=== PATIENT | male | born 1960 | race Caucasian/White ===

== ENCOUNTER 2016-09-11 21:12 | Emergency (ER) | payer OTHER ==
[~2016-09-11] VITALS: Ht 182.9 cm; Wt 89.3 kg
[~2016-09-11 21:12] MED LIST: ACETAMINOPHEN325 M1 PO; AUGMENTIN875 MG PO; B-1100 MG PO; BACTRIM,SEPT1 TABLET PO; BENADRYL25 MG PO; CELEXA20 MG PO; CITALOPRAM HBR20 MG PO; DOXYCYCLINE HY100 MG PO; ELIMITE 5% CREA60 GM TP; FLEXERIL5 MG PO; FOLIC ACID1 MG PO; HYDROCORTISON28.4 GM TP; KEFLEX500 MG PO; LEVAQUIN750 MG PO; LIBRIUM25 MG PO; LISINOPRIL5 MG PO; LORTAB 5-325 M1 EACH PO; MEDROL DOSEPAK4 MG PO; METHOCARBAMOL750 MG PO; MOBIC15 MG PO; MOTRIN400 MG PO; MOTRIN600 MG PO; MOTRIN800 MG PO; NAPROSYN500 MG PO; NICOTINE PATCH1 EAC2 TD; NO HOME MEDS; NYSTATIN15 GM TP; PEPCID20 MG PO; PRILOSEC20 MG PO; ROBITUSSIN AC,T10 ML PO; THERAGRAN1 TABLET PO; THIAMINE HCL100 MG PO; TYLENOL WITH C1 EACH PO; ULTRAM50 MG PO; VITAMIN B-1100 MG PO; ZITHROMAX Z-PA250 MG PO; ZITHROMAX250 MG PO; ZOFRAN4 MG PO
[2016-09-11] MEDS ORDERED: PREDNISONE10 MG PO (23:06)
[2016-09-11] MEDS ORDERED: ELIMITE 5% CREA60 GM TP (23:06)
[2016-09-11 23:44] VITALS: BP 144/108
== END 2016-09-11 23:47 | disposition home or self-care (01) ==
LOC: RME 21:12 → EME 21:12 → RME 23:47
DX: B86 Scabies (principal); I10 Essential (primary) hypertension; B19.20 Unspecified viral hepatitis C without hepatic coma; F17.200 Nicotine dependence, unspecified, uncomplicated
CPT/HCPCS: 99281; 99284

== ENCOUNTER 2016-11-24 21:08 | Emergency (ER) | payer OTHER ==
[~2016-11-24] VITALS: Ht 182.9 cm; Wt 86.1 kg
[~2016-11-24 21:08] MED LIST changes: +PREDNISONE10 MG PO
[2016-11-24 21:23] VITALS: BP 112/69
[2016-11-24] MEDS ORDERED: MOTRIN800 MG PO (22:56)
== END 2016-11-24 23:41 | disposition home or self-care (01) ==
LOC: EME 21:08
DX: S06.0X0A Concussion without loss of consciousness, initial encounter (principal); S70.01XA Contusion of right hip, initial encounter; M25.531 Pain in right wrist; Y35.813A Legal intervention involving manhandling, suspect injured, initial encounter
CPT/HCPCS: 99281; 99283

== ENCOUNTER 2016-11-29 20:53 | Emergency (ER) | payer OTHER ==
[~2016-11-29] VITALS: Ht 180.3 cm; Wt 80.5 kg
[2016-11-29 21:06] VITALS: BP 133/91
== END 2016-11-29 22:34 | disposition left against medical advice (07) ==
LOC: EME 20:53
DX: F10.20 Alcohol dependence, uncomplicated (principal); Z53.21 Procedure and treatment not carried out due to patient leaving prior to being seen by health care provider
CPT/HCPCS: 99281; 99282

== ENCOUNTER 2016-12-07 20:49 | Inpatient (IN) | payer OTHER ==
[~2016-12-07] VITALS: Ht 182.9 cm; Wt 95.5 kg
[2016-12-07 21:42] LABS: HEMATOCRIT 37.2 % (38.0-50.0); MCH 29.9 PG (29.0-34.0); MCHC 34.9 G/DL (30.0-36.0); MCV 85.5 FL (86-99); RBC DIS.WIDTH-SD 43.8 % (39-53); RED BLOOD COUNT 4.35 M/uL (4.00-5.50); WHITE BLOOD COUNT 2.6 K/uL (4.1-10.2)
[2016-12-07 21:54] LABS: CHLORIDE 95 mEq/L (99-109); POTASSIUM 3.3 mEq/L (3.7-5.4); SODIUM 131 mEq/L (136-147)
[2016-12-07 21:56] LABS: GLUCOSE 71 mg/dL (70-99)
[2016-12-07 21:57] LABS: ANION GAP 22 MEQ/L (2-14)
[2016-12-07 22:00] LABS: GFR ESTIMATE (CALCULATED) 35 mL/min/
[2016-12-07 22:01] LABS: UREA NITROGEN (BUN) 35 mg/dL (9-23)
[2016-12-07 22:31] LABS: HEMATOLOGY COMMENT 1 SN; IMM.PLATELET FRACTION 11.4 (1-7); MEAN PLAT.VOLUME 12.1 uM^3 (9.0-12.4); PLATELET COUNT 44 K/uL (156-360)
[2016-12-07 22:32] LABS: PLAT.SUFFICIENCY VERY DECREASED
[2016-12-07 23:07] LABS: ALKALINE PHOSPHATASE 38 IU/L (3-129)
[2016-12-07 23:10] LABS: DIRECT BILIRUBIN 3.3 mg/dL (0.0-0.3); INTER. NORMALIZED RATIO 1.7; PROTHROMBIN TIME 17.2 (9.2-11.2); PTT 34.8 (25-32)
[2016-12-07 23:11] LABS: LIPASE 8 U/L (1.0-51.0)
[2016-12-07 23:15] LABS: TROP-I INTERPRETATION INDETERMINATE; TROPONIN-I 0.46 ng/mL (0.0-0.30)
[2016-12-07 23:45] LABS: BASE EXCESS -2.4 mEq/L (-3 to +3); BICARBONATE 19.8 mEq/L (22-26); CARBOXY HGB 1.8 % (0-5); COMMENTS - BLOOD GASES C+A+; DEVICE HHFNC; FI02 100 %; O2 FLOW 55 L/MIN; PCO2 26 mm Hg (35-45); PO2 62 mm Hg (80-100); SITE LR; pH 7.49 (7.35-7.45)
[2016-12-07 23:46] LABS: TOTAL RESP RATE 28 resp/min
[2016-12-08] VITALS (22 sets, daily range): BP systolic 108–174; BP diastolic 71–140
[2016-12-08 00:22] LABS: SERUM ETHYL ALCOHOL < 10 mg/dL
[2016-12-08 00:25] LABS: SALICYLATE < 5.0 MG/DL (15-30)
[2016-12-08 03:40] LABS: METH RESISTANT S AUREUS PCR NEGATIVE (NEGATIVE)
[2016-12-08 03:48] LABS: PROBE CHECK PASS; SPECIMEN PROCESSING CONTROL PASS
[2016-12-08 05:03] LABS: CHLORIDE 101 mEq/L (99-109); SODIUM 132 mEq/L (136-147)
[2016-12-08 05:05] LABS: GLUCOSE 74 mg/dL (70-99)
[2016-12-08 05:06] LABS: ANION GAP 15 MEQ/L (2-14)
[2016-12-08 05:08] LABS: ALKALINE PHOSPHATASE 27 IU/L (3-129)
[2016-12-08 05:09] LABS: GFR ESTIMATE (CALCULATED) 56 mL/min/; TOTAL BILIRUBIN 3.8 mg/dL (0.0-1.0)
[2016-12-08 05:10] LABS: UREA NITROGEN (BUN) 33 mg/dL (9-23)
[2016-12-08 06:18] LABS: HEMATOCRIT 32.1 % (38.0-50.0); IMM.PLATELET FRACTION 10.6 (1-7); MCH 30.5 PG (29.0-34.0); MCHC 35.5 G/DL (30.0-36.0); MCV 85.8 FL (86-99); MEAN PLAT.VOLUME 11.2 uM^3 (9.0-12.4); PLAT.SUFFICIENCY VERY DECREASED; RBC DIS.WIDTH-CV 14.1 % (11.8-14.6); RBC DIS.WIDTH-SD 43.9 % (39-53); RED BLOOD COUNT 3.74 M/uL (4.00-5.50); WHITE BLOOD COUNT 1.1 K/uL (4.1-10.2)
[2016-12-08 06:21] LABS: PLATELET COUNT 25 K/uL (156-360)
[2016-12-08 06:57] LABS: TROP-I INTERPRETATION INDETERMINATE; TROPONIN-I 0.44 ng/mL (0.0-0.30)
[2016-12-08 08:11] LABS: Estimated Average Glucose 117 mg/dL (70-123); HEMOGLOBIN A1c (GLYCOHEMOGLOB) 5.7 % HGB (Below 5.7)
[2016-12-08 11:29] LABS: POINT-OF-CARE METER ID UU14162636
[2016-12-08 14:57] LABS: TROP-I INTERPRETATION NEGATIVE; TROPONIN-I 0.16 ng/mL (0.0-0.30)
[2016-12-08 16:16] LABS: POINT-OF-CARE METER ID UU14162636
[2016-12-09] VITALS (23 sets, daily range): BP systolic 73–162; BP diastolic 44–99
[2016-12-09 05:56] LABS: HEMATOCRIT 33.7 % (38.0-50.0); MCH 30.3 PG (29.0-34.0); MCHC 34.7 G/DL (30.0-36.0); MCV 87.3 FL (86-99); RBC DIS.WIDTH-CV 14.5 % (11.8-14.6); RBC DIS.WIDTH-SD 45.7 % (39-53); RED BLOOD COUNT 3.86 M/uL (4.00-5.50)
[2016-12-09 05:57] LABS: WHITE BLOOD COUNT 5.6 K/uL (4.1-10.2)
[2016-12-09 06:10] LABS: ALKALINE PHOSPHATASE 33 IU/L (3-129); ANION GAP 10 MEQ/L (2-14); CHLORIDE 98 MEQ/L (99-109); MAGNESIUM 2.1 mg/dl (1.3-2.7); POTASSIUM 3.1 MEQ/L (3.7-5.4); SAMPLE HEMOLYSIS CHECK 0; SAMPLE ICTERIC CHECK 0; SAMPLE LIPEMIA CHECK 0; SODIUM 130 MEQ/L (136-147); TOTAL BILIRUBIN 2.7 MG/DL (0.0-1.0); UREA NITROGEN (BUN) 23 mg/dL (9-23)
[2016-12-09 06:11] LABS: GFR ESTIMATE (CALCULATED) > 59 mL/min/; GLUCOSE 116 mg/dL (70-99)
[2016-12-09 06:23] LABS: IMM.PLATELET FRACTION 10.6 (1-7); MEAN PLAT.VOLUME 12.6 uM^3 (9.0-12.4)
[2016-12-09 06:24] LABS: PLATELET COUNT 29 K/uL (156-360)
[2016-12-09 06:27] LABS: INTER. NORMALIZED RATIO 1.4; PROTHROMBIN TIME 14.5 (9.2-11.2)
[2016-12-09 07:34] LABS: BASE EXCESS 0.1 mEq/L (-3 to +3); BICARBONATE 23.6 mEq/L (22-26); CARBOXY HGB 1.9 % (0-5); METHEMOGLOBIN 1.7 % (0-1.5); pH 7.45 (7.35-7.45)
[2016-12-09 07:35] LABS: COMMENTS - BLOOD GASES A+C+; DEVICE HHFNC; O2 FLOW 70 L/MIN; PCO2 34 mm Hg (35-45); PO2 36 mm Hg (80-100); SITE RRA
[2016-12-09 07:36] LABS: FI02 100 %; TOTAL RESP RATE 35 resp/min
[2016-12-09 09:18] LABS: BASE EXCESS 0 mEq/L (-3 to +3); BICARBONATE 23.8 mEq/L (22-26); METHEMOGLOBIN 1.5 % (0-1.5); PCO2 35 mm Hg (35-45); PO2 73 mm Hg (80-100); pH 7.44 (7.35-7.45)
[2016-12-09 09:19] LABS: COMMENTS - BLOOD GASES A+C+; DEVICE 840; FI02 100 %; PEEP 8 CM/H20; SITE RRA; TOTAL RESP RATE 50 resp/min
[2016-12-09 12:19] LABS: POINT-OF-CARE METER ID UU14162636
[2016-12-09 16:53] LABS: POINT-OF-CARE METER ID UU14162636
[2016-12-09 18:39] LABS: POINT-OF-CARE METER ID UU14162636
[2016-12-09 20:50] LABS: BASE EXCESS -1.4 mEq/L (-3 to +3); BICARBONATE 25.6 mEq/L (22-26); CARBOXY HGB 1.9 % (0-5); METHEMOGLOBIN 1.2 % (0-1.5); PO2 84 mm Hg (80-100)
[2016-12-09 20:51] LABS: PCO2 52 mm Hg (35-45)
[2016-12-09 20:52] LABS: COMMENTS - BLOOD GASES A+C+; DEVICE VENT; FI02 100 %; MECHANICAL RATE 20 resp/min; MODE A/C; PEEP 15 CM/H20; SITE RR; TIDAL VOLUME 500 ML; TOTAL RESP RATE 35 resp/min
[2016-12-09 23:50] LABS: POINT-OF-CARE METER ID UU14162636; POINT-OF-CARE USER ID LABHNS84
[2016-12-09 23:57] LABS: CHLORIDE 104 mEq/L (99-109); POTASSIUM 3.4 mEq/L (3.7-5.4); SODIUM 136 mEq/L (136-147)
[2016-12-09 23:59] LABS: GLUCOSE 117 mg/dL (70-99)
[2016-12-10] VITALS (24 sets, daily range): BP systolic 0–108; BP diastolic 0–71
[2016-12-10] LABS: ANION GAP 11 MEQ/L (2-14)
[2016-12-10 00:03] LABS: ALKALINE PHOSPHATASE 42 IU/L (3-129); GFR ESTIMATE (CALCULATED) > 59 mL/min/
[2016-12-10 00:04] LABS: MCH 30.5 PG (29.0-34.0); MCHC 34.2 G/DL (30.0-36.0); MCV 88.9 FL (86-99); NRBC (%) 0.2 /100 WBC (0-0); RBC DIS.WIDTH-CV 14.6 % (11.8-14.6); RBC DIS.WIDTH-SD 47.7 % (39-53); RED BLOOD COUNT 3.71 M/uL (4.00-5.50); UREA NITROGEN (BUN) 34 mg/dL (9-23)
[2016-12-10 00:05] LABS: TOTAL BILIRUBIN 2.5 mg/dL (0.0-1.0)
[2016-12-10 00:06] LABS: WHITE BLOOD COUNT 12.7 K/uL (4.1-10.2)
[2016-12-10 00:51] LABS: IMM.PLATELET FRACTION 11.7 (1-7); PLATELET COUNT 37 K/uL (156-360)
[2016-12-10 00:53] LABS: PLAT.SUFFICIENCY VERY DECREASED
[2016-12-10 05:30] LABS: ALKALINE PHOSPHATASE 42 IU/L (3-129); ANION GAP 8 MEQ/L (2-14); CHLORIDE 105 MEQ/L (99-109); GFR ESTIMATE (CALCULATED) > 59 mL/min/; GLUCOSE 111 mg/dL (70-99); MAGNESIUM 2.3 mg/dl (1.3-2.7); POTASSIUM 3.4 MEQ/L (3.7-5.4); SAMPLE HEMOLYSIS CHECK 0; SAMPLE ICTERIC CHECK 0; SAMPLE LIPEMIA CHECK 0; SODIUM 137 MEQ/L (136-147); TOTAL BILIRUBIN 2.6 MG/DL (0.0-1.0); UREA NITROGEN (BUN) 38 mg/dL (9-23)
[2016-12-10 05:36] LABS: HEMATOCRIT 33.6 % (38.0-50.0); MCH 30.4 PG (29.0-34.0); MCHC 33.3 G/DL (30.0-36.0); MCV 91.1 FL (86-99); NRBC (%) 0.2 /100 WBC (0-0); RBC DIS.WIDTH-CV 15.1 % (11.8-14.6); RBC DIS.WIDTH-SD 50.8 % (39-53); RED BLOOD COUNT 3.69 M/uL (4.00-5.50); WHITE BLOOD COUNT 12.2 K/uL (4.1-10.2)
[2016-12-10 06:37] LABS: MEAN PLAT.VOLUME 11.5 uM^3 (9.0-12.4); PLAT.SUFFICIENCY DECREASED; PLATELET COUNT 33 K/uL (156-360)
[2016-12-10 12:03] LABS: POINT-OF-CARE METER ID UU14162636
[2016-12-11] VITALS (31 sets, daily range): BP systolic 73–114; BP diastolic 41–65
[2016-12-11 00:37] LABS: POINT-OF-CARE USER ID LABHNS84
[2016-12-11 05:32] LABS: POINT-OF-CARE METER ID UU14174217; POINT-OF-CARE USER ID LABHNS84
[2016-12-11 06:30] LABS: HEMATOCRIT 32.4 % (38.0-50.0); MCH 30.8 PG (29.0-34.0); MCHC 32.4 G/DL (30.0-36.0); RBC DIS.WIDTH-CV 16.1 % (11.8-14.6); RBC DIS.WIDTH-SD 56.5 % (39-53); RED BLOOD COUNT 3.41 M/uL (4.00-5.50)
[2016-12-11 06:31] LABS: WHITE BLOOD COUNT 16.7 K/uL (4.1-10.2)
[2016-12-11 06:36] LABS: ANION GAP 11 MEQ/L (2-14); CHLORIDE 104 MEQ/L (99-109); GLUCOSE 120 mg/dL (70-99); POTASSIUM 3.7 MEQ/L (3.7-5.4); SAMPLE HEMOLYSIS CHECK 0; SAMPLE ICTERIC CHECK 1; SAMPLE LIPEMIA CHECK 0; SODIUM 137 MEQ/L (136-147)
[2016-12-11 06:49] LABS: GFR ESTIMATE (CALCULATED) 37 mL/min/; MAGNESIUM 2.9 mg/dl (1.3-2.7); UREA NITROGEN (BUN) 63 mg/dL (9-23)
[2016-12-11 06:57] LABS: ABS NEUTROPHIL COUNT 15.2; ANISOCYTOSIS 1+; BAND NEUTROPHILS 6.1 % (0-8.0); BASOPHILS 0.9 %; EOSINOPHIL ABS CT 0; HEMATOLOGY COMMENT 1 SN; IMM.PLATELET FRACTION 7.9 (1-7); INSTRUMENT ABS NEUTROPHIL CT 14.2 K/uL; LYMPHOCYTES 1.7 % (15.0-45.0); MACROCYTES 1+; MEAN PLAT.VOLUME 11.3 uM^3 (9.0-12.4); PLAT.SUFFICIENCY DECREASED; PLATELET COUNT 40 K/uL (156-360); POLYCHROMASIA 1+; SEG.NEUTROPHILS 85.2 % (46.0-76.0)
[2016-12-11 12:12] LABS: POINT-OF-CARE METER ID UU14174217
[2016-12-11 14:53] LABS: Heparin Induced Plt Ab Positive (Negative)
[2016-12-11 17:46] LABS: ADD MIUA? YES; BILIRUBIN NEGATIVE; BLOOD MODERATE; COLOR AMBER ((YELLOW)); GLUCOSE (STRIP) NEGATIVE; KETONES NEGATIVE; LEUKOCYTES NEGATIVE; NITRITE NEGATIVE; PROTEIN (STRIP) NEGATIVE; SPECIFIC GRAVITY 1.021 (1.000-1.030); UROBILINOGEN 0.2 MG/DL (0.2-1.0)
[2016-12-11 18:08] LABS: BACTERIA RARE /HPF; EPITHELIAL CELLS NONE SEEN /HPF; MUCUS TRACE /LPF; RED BLOOD CELLS 20-30 /HPF (0-5); WHITE BLOOD CELLS 0-5 /HPF (0-5)
[2016-12-11 19:52] LABS: UR CREATININE CONCENTRATION 203.4 MG/DL
[2016-12-11 21:32] LABS: POINT-OF-CARE METER ID UU14174217
[2016-12-12] VITALS (24 sets, daily range): BP systolic 0–123; BP diastolic 0–68
[2016-12-12 00:16] LABS: POINT-OF-CARE METER ID UU14174217; POINT-OF-CARE USER ID LABHNS84
[2016-12-12 05:12] LABS: POINT-OF-CARE METER ID UU13113803; POINT-OF-CARE USER ID LABHNS84
[2016-12-12 06:00] LABS: ANION GAP 12 MEQ/L (2-14); CHLORIDE 109 MEQ/L (99-109); GFR ESTIMATE (CALCULATED) 42 mL/min/; GLUCOSE 136 mg/dL (70-99); MAGNESIUM 3.2 mg/dl (1.3-2.7); SAMPLE HEMOLYSIS CHECK 0; SAMPLE ICTERIC CHECK 1; SAMPLE LIPEMIA CHECK 0; SODIUM 141 MEQ/L (136-147); UREA NITROGEN (BUN) 81 mg/dL (9-23)
[2016-12-12 06:10] LABS: ANION GAP 12 MEQ/L (2-14); CHLORIDE 109 MEQ/L (99-109); GFR ESTIMATE (CALCULATED) 39 mL/min/; GLUCOSE 143 mg/dL (70-99); MAGNESIUM 3.2 mg/dl (1.3-2.7); POTASSIUM 3.9 MEQ/L (3.7-5.4); SAMPLE HEMOLYSIS CHECK 0; SAMPLE ICTERIC CHECK 1; SAMPLE LIPEMIA CHECK 0; SODIUM 141 MEQ/L (136-147); UREA NITROGEN (BUN) 82 mg/dL (9-23); URIC ACID 4.6 mg/dL (3.1-9.2)
[2016-12-12 06:11] LABS: ALKALINE PHOSPHATASE 78 IU/L (3-129); TOTAL BILIRUBIN 4.5 MG/DL (0.0-1.0)
[2016-12-12 13:05] LABS: POINT-OF-CARE METER ID UU13113803
[2016-12-12 17:40] LABS: UFH SRA Result Negative (Negative)
[2016-12-12 18:14] LABS: POINT-OF-CARE METER ID UU13113803
[2016-12-13 01:08] LABS: POINT-OF-CARE METER ID UU14174217
[2016-12-13 06:28] LABS: MCH 29.8 PG (29.0-34.0); MCHC 31.1 G/DL (30.0-36.0); MCV 95.6 FL (86-99); MEAN PLAT.VOLUME 10.7 uM^3 (9.0-12.4); NRBC (%) 0.1 /100 WBC (0-0); RBC DIS.WIDTH-CV 16.7 % (11.8-14.6); RBC DIS.WIDTH-SD 58.7 % (39-53); RED BLOOD COUNT 3.66 M/uL (4.00-5.50); WHITE BLOOD COUNT 19.4 K/uL (4.1-10.2)
[2016-12-13 06:41] LABS: PLATELET COUNT 60 K/uL (156-360)
[2016-12-13 07:06] LABS: ALKALINE PHOSPHATASE 72 IU/L (3-129); ANION GAP 10 MEQ/L (2-14); CHLORIDE 117 MEQ/L (99-109); GFR ESTIMATE (CALCULATED) 56 mL/min/; GLUCOSE 141 mg/dL (70-99); POTASSIUM 4.2 MEQ/L (3.7-5.4); SAMPLE HEMOLYSIS CHECK 0; SAMPLE ICTERIC CHECK 1; SAMPLE LIPEMIA CHECK 0; TOTAL BILIRUBIN 5.1 MG/DL (0.0-1.0); UREA NITROGEN (BUN) 74 mg/dL (9-23)
[2016-12-13 07:10] LABS: SODIUM 149 MEQ/L (136-147)
[2016-12-13 07:12] LABS: BASOPHIL COUNT 0.1 K/uL (0-0.1); EOSINOPHIL (%) 0.7 % (0-5); EOSINOPHIL COUNT 0.1 K/uL (0-0.3); IMMATURE GRANULOCYTE (%) 1.6 % (0.0-0.7); IMMATURE GRANULOCYTE COUNT 0.3 K/uL; INSTRUMENT ABS NEUTROPHIL CT 17.1 K/uL; LYMPHOCYTE COUNT 1.2 K/uL (1.0-2.8); MONOCYTE (%) 2.9 % (3-12); MONOCYTE COUNT 0.6 K/uL (0-0.8); NEUTROPHIL (%) 88.2 % (45-76); NEUTROPHIL COUNT 17.1 K/uL (1.8-6.4); PLAT.SUFFICIENCY DECREASED
[2016-12-13 09:00] VITALS: BP 126/72
[2016-12-13 11:34] LABS: POINT-OF-CARE METER ID UU14162636
[2016-12-13 13:45] LABS: Heparin Induced Plt Ab Positive (Negative)
[2016-12-13 16:05] LABS: UFH SRA Result Negative (Negative)
[2016-12-13 18:12] LABS: POINT-OF-CARE METER ID UU13113803
[2016-12-13 23:22] LABS: BASE EXCESS -1.4 mEq/L (-3 to +3); BICARBONATE 26.2 mEq/L (22-26); CARBOXY HGB 2.2 % (0-5); METHEMOGLOBIN 1.3 % (0-1.5); PO2 71 mm Hg (80-100)
[2016-12-13 23:23] LABS: COMMENTS - BLOOD GASES C+; DEVICE 840; FI02 60 %; INSPIRATION TIME 0.9 seconds; MECHANICAL RATE 20 resp/min; MODE AC/VC+; PCO2 57 mm Hg (35-45); PEEP 14 CM/H20; SITE A-LINE; TIDAL VOLUME 500 ML; TOTAL RESP RATE 22 resp/min
[2016-12-13 23:24] LABS: pH 7.27 (7.35-7.45)
[2016-12-14 00:43] LABS: POINT-OF-CARE METER ID UU13113731
[2016-12-14 05:25] LABS: POINT-OF-CARE METER ID UU13113731
[2016-12-14 05:42] LABS: BASE EXCESS -0.8 mEq/L (-3 to +3); BICARBONATE 26.1 mEq/L (22-26); CARBOXY HGB 2.1 % (0-5); METHEMOGLOBIN 1.7 % (0-1.5); PCO2 53 mm Hg (35-45); PO2 76 mm Hg (80-100)
[2016-12-14 05:43] LABS: COMMENTS - BLOOD GASES C+; DEVICE 840; FI02 60 %; INSPIRATION TIME 0.8 seconds; MECHANICAL RATE 26 resp/min; MODE AC/VC+; PEEP 14 CM/H20; SITE A-LINE; TIDAL VOLUME 500 ML; TOTAL RESP RATE 29 resp/min
[2016-12-14 06:12] LABS: ALKALINE PHOSPHATASE 73 IU/L (3-129); ANION GAP 7 MEQ/L (2-14); CHLORIDE 120 MEQ/L (99-109); GFR ESTIMATE (CALCULATED) > 59 mL/min/; GLUCOSE 184 mg/dL (70-99); MAGNESIUM 3.1 mg/dl (1.3-2.7); POTASSIUM 3.8 MEQ/L (3.7-5.4); SAMPLE HEMOLYSIS CHECK 0; SAMPLE ICTERIC CHECK 1; SAMPLE LIPEMIA CHECK 0; SODIUM 151 MEQ/L (136-147); UREA NITROGEN (BUN) 65 mg/dL (9-23)
[2016-12-14 06:13] LABS: TOTAL BILIRUBIN 3.3 MG/DL (0.0-1.0)
[2016-12-14 06:37] LABS: EOSINOPHIL (%) 0.5 % (0-5); EOSINOPHIL COUNT 0.1 K/uL (0-0.3); IMMATURE GRANULOCYTE (%) 1.1 % (0.0-0.7); IMMATURE GRANULOCYTE COUNT 0.2 K/uL; INSTRUMENT ABS NEUTROPHIL CT 13.4 K/uL; LYMPHOCYTE COUNT 0.6 K/uL (1.0-2.8); MCH 30.1 PG (29.0-34.0); MCHC 30.9 G/DL (30.0-36.0); MCV 97.3 FL (86-99); MONOCYTE (%) 2.7 % (3-12); MONOCYTE COUNT 0.4 K/uL (0-0.8); NEUTROPHIL (%) 91.6 % (45-76); NEUTROPHIL COUNT 13.4 K/uL (1.8-6.4); RBC DIS.WIDTH-CV 17.2 % (11.8-14.6); RBC DIS.WIDTH-SD 60.5 % (39-53); RED BLOOD COUNT 3.29 M/uL (4.00-5.50); WHITE BLOOD COUNT 14.6 K/uL (4.1-10.2)
[2016-12-14 06:55] LABS: IMM.PLATELET FRACTION 3.8 (1-7); MEAN PLAT.VOLUME 11.3 uM^3 (9.0-12.4); PLATELET COUNT 40 K/uL (156-360)
[2016-12-14 11:00] VITALS: BP 118/68
[2016-12-14 18:21] LABS: POINT-OF-CARE METER ID UU13113731
[2016-12-14 23:37] LABS: POINT-OF-CARE METER ID UU13113731
[2016-12-15 06:33] LABS: POINT-OF-CARE METER ID UU13113731
[2016-12-15 06:52] LABS: ANION GAP 5 MEQ/L (2-14); CHLORIDE 118 MEQ/L (99-109); GFR ESTIMATE (CALCULATED) > 59 mL/min/; GLUCOSE 190 mg/dL (70-99); SAMPLE HEMOLYSIS CHECK 0; SAMPLE ICTERIC CHECK 0; SAMPLE LIPEMIA CHECK 0; SODIUM 149 MEQ/L (136-147); UREA NITROGEN (BUN) 45 mg/dL (9-23)
[2016-12-15 12:16] LABS: BASOPHIL COUNT 0.1 K/uL (0-0.1); EOSINOPHIL (%) 1.1 % (0-5); EOSINOPHIL COUNT 0.2 K/uL (0-0.3); HEMATOCRIT 36.2 % (38.0-50.0); IMMATURE GRANULOCYTE (%) 0.8 % (0.0-0.7); IMMATURE GRANULOCYTE COUNT 0.2 K/uL; INSTRUMENT ABS NEUTROPHIL CT 16.8 K/uL; LYMPHOCYTE COUNT 0.6 K/uL (1.0-2.8); MCHC 30.1 G/DL (30.0-36.0); MCV 99.7 FL (86-99); MONOCYTE (%) 2.7 % (3-12); MONOCYTE COUNT 0.5 K/uL (0-0.8); NEUTROPHIL (%) 91.7 % (45-76); NEUTROPHIL COUNT 16.8 K/uL (1.8-6.4); RBC DIS.WIDTH-SD 64.3 % (39-53); RED BLOOD COUNT 3.63 M/uL (4.00-5.50); WHITE BLOOD COUNT 18.3 K/uL (4.1-10.2)
[2016-12-15 12:52] LABS: IMM.PLATELET FRACTION 5.6 (1-7); MEAN PLAT.VOLUME 11.6 uM^3 (9.0-12.4); PLAT.SUFFICIENCY DECREASED; PLATELET COUNT 44 K/uL (156-360)
[2016-12-15 13:16] LABS: POINT-OF-CARE METER ID UU13113731
[2016-12-15 18:00] LABS: POINT-OF-CARE METER ID UU14162636
[2016-12-15 22:00] VITALS: BP 154/85
[2016-12-16] VITALS (7 sets, daily range): BP systolic 135–167; BP diastolic 71–97
[2016-12-16 00:37] LABS: POINT-OF-CARE METER ID UU14162636
[2016-12-16 05:19] LABS: POINT-OF-CARE METER ID UU13113731
[2016-12-16 06:13] LABS: ANION GAP 5 MEQ/L (2-14); CHLORIDE 119 MEQ/L (99-109); GFR ESTIMATE (CALCULATED) > 59 mL/min/; GLUCOSE 223 mg/dL (70-99); POTASSIUM 4.5 MEQ/L (3.7-5.4); SAMPLE HEMOLYSIS CHECK 0; SAMPLE ICTERIC CHECK 0; SAMPLE LIPEMIA CHECK 0; SODIUM 151 MEQ/L (136-147); UREA NITROGEN (BUN) 32 mg/dL (9-23)
[2016-12-16 06:14] LABS: MAGNESIUM 2.4 mg/dl (1.3-2.7)
[2016-12-16 12:05] LABS: POINT-OF-CARE METER ID UU13113803
[2016-12-16 17:30] LABS: POINT-OF-CARE METER ID UU13113803
[2016-12-16 21:32] LABS: BASE EXCESS 3.2 mEq/L (-3 to +3); BICARBONATE 28.5 mEq/L (22-26); CARBOXY HGB 2.3 % (0-5); FI02 60 %; MECHANICAL RATE 26 resp/min; METHEMOGLOBIN 1.4 % (0-1.5); MODE AC; PCO2 46 mm Hg (35-45); PEEP 10 CM/H20; PO2 64 mm Hg (80-100); TIDAL VOLUME 550 ML; TOTAL RESP RATE 28 resp/min
[2016-12-16 21:33] LABS: COMMENTS - BLOOD GASES C+; DEVICE PB840; SITE A-LINE
[2016-12-16 21:33] LABS: EOSINOPHIL COUNT 0.1 K/uL (0-0.3); HEMATOCRIT 32.2 % (38.0-50.0); IMMATURE GRANULOCYTE (%) 0.8 % (0.0-0.7); IMMATURE GRANULOCYTE COUNT 0.1 K/uL; INSTRUMENT ABS NEUTROPHIL CT 13.3 K/uL; LYMPHOCYTE COUNT 0.7 K/uL (1.0-2.8); MCH 29.8 PG (29.0-34.0); MCHC 30.4 G/DL (30.0-36.0); MCV 97.9 FL (86-99); MONOCYTE (%) 2.9 % (3-12); MONOCYTE COUNT 0.4 K/uL (0-0.8); NEUTROPHIL (%) 90.6 % (45-76); NEUTROPHIL COUNT 13.3 K/uL (1.8-6.4); RBC DIS.WIDTH-CV 18.4 % (11.8-14.6); RBC DIS.WIDTH-SD 61.8 % (39-53); RED BLOOD COUNT 3.29 M/uL (4.00-5.50); WHITE BLOOD COUNT 14.6 K/uL (4.1-10.2)
[2016-12-16 21:41] LABS: C DIFF TOXIN NEGATIVE (NEGATIVE)
[2016-12-16 21:44] LABS: INTER. NORMALIZED RATIO 1.7; PROTHROMBIN TIME 17.2 (9.2-11.2); PTT 33.5 (25-32)
[2016-12-16 21:52] LABS: PROBE CHECK PASS; SPECIMEN PROCESSING CONTROL PASS
[2016-12-16 21:54] LABS: ALKALINE PHOSPHATASE 101 IU/L (3-129); DIRECT BILIRUBIN 1.3 mg/dL (0.0-0.3); MAGNESIUM 2.6 mg/dl (1.3-2.7); TOTAL BILIRUBIN 2.3 MG/DL (0.0-1.0)
[2016-12-16 21:55] LABS: ALKALINE PHOSPHATASE 100 IU/L (3-129); ANION GAP 5 MEQ/L (2-14); CHLORIDE 120 MEQ/L (99-109); GFR ESTIMATE (CALCULATED) > 59 mL/min/; GLUCOSE 203 mg/dL (70-99); POTASSIUM 4.2 MEQ/L (3.7-5.4); SAMPLE HEMOLYSIS CHECK 0; SAMPLE ICTERIC CHECK 0; SAMPLE LIPEMIA CHECK 0; SODIUM 153 MEQ/L (136-147); TOTAL BILIRUBIN 2.4 MG/DL (0.0-1.0); UREA NITROGEN (BUN) 29 mg/dL (9-23)
[2016-12-16 22:15] LABS: ANISOCYTOSIS 2+; BAND NEUTROPHILS 17.5 % (0-8.0); BASOPHILS 0.9 %; EOSINOPHIL ABS CT 0; GIANT PLATELETS 1+; HYPOCHROMASIA 2+; IMM.PLATELET FRACTION 5.6 (1-7); LYMPHOCYTES 2.6 % (15.0-45.0); MACROCYTES 2+; MEAN PLAT.VOLUME 11.9 uM^3 (9.0-12.4); MICROCYTOSIS 1+; PLATELET COUNT 37 K/uL (156-360); POLYCHROMASIA 1+; SEG.NEUTROPHILS 78.1 % (46.0-76.0); SPHEROCYTES 1+; STOMATOCYTES 1+; TARGET CELLS 1+
[2016-12-16 22:25] LABS: PLAT.SUFFICIENCY VERY DECREASED
[2016-12-16 23:26] LABS: POINT-OF-CARE METER ID UU13113731
[2016-12-17] VITALS (30 sets, daily range): BP systolic 119–198; BP diastolic 67–98
[2016-12-17 00:25] LABS: FIBRINOGEN 159 MG/DL (160-450)
[2016-12-17 06:14] LABS: ANION GAP 8 MEQ/L (2-14); CHLORIDE 118 MEQ/L (99-109); GFR ESTIMATE (CALCULATED) > 59 mL/min/; GLUCOSE 167 mg/dL (70-99); MAGNESIUM 2.4 mg/dl (1.3-2.7); SAMPLE HEMOLYSIS CHECK 0; SAMPLE ICTERIC CHECK 0; SAMPLE LIPEMIA CHECK 0; SODIUM 155 MEQ/L (136-147); UREA NITROGEN (BUN) 26 mg/dL (9-23)
[2016-12-17 09:34] LABS: EOSINOPHIL COUNT 0.1 K/uL (0-0.3); IMMATURE GRANULOCYTE (%) 0.6 % (0.0-0.7); IMMATURE GRANULOCYTE COUNT 0.1 K/uL; INSTRUMENT ABS NEUTROPHIL CT 11.3 K/uL; LYMPHOCYTE COUNT 0.6 K/uL (1.0-2.8); MCHC 30.7 G/DL (30.0-36.0); MCV 97.6 FL (86-99); MONOCYTE COUNT 0.4 K/uL (0-0.8); NEUTROPHIL COUNT 11.3 K/uL (1.8-6.4); RBC DIS.WIDTH-CV 18.2 % (11.8-14.6); RBC DIS.WIDTH-SD 60.5 % (39-53); RED BLOOD COUNT 2.97 M/uL (4.00-5.50); WHITE BLOOD COUNT 12.6 K/uL (4.1-10.2)
[2016-12-17 10:02] LABS: IMM.PLATELET FRACTION 4.2 (1-7); MEAN PLAT.VOLUME 10.8 uM^3 (9.0-12.4); PLAT.SUFFICIENCY DECREASED
[2016-12-17 10:10] LABS: PLATELET COUNT 49 K/uL (156-360)
[2016-12-17 17:42] LABS: POINT-OF-CARE METER ID UU14162636
[2016-12-18] VITALS (24 sets, daily range): BP systolic 104–141; BP diastolic 60–84
[2016-12-18 00:53] LABS: POINT-OF-CARE METER ID UU13113803; POINT-OF-CARE USER ID ENVSME70
[2016-12-18 06:10] LABS: POINT-OF-CARE METER ID UU13113803; POINT-OF-CARE USER ID LABHNS84
[2016-12-18 06:15] LABS: BASOPHIL COUNT 0.1 K/uL (0-0.1); EOSINOPHIL (%) 0.9 % (0-5); EOSINOPHIL COUNT 0.1 K/uL (0-0.3); IMMATURE GRANULOCYTE (%) 0.7 % (0.0-0.7); IMMATURE GRANULOCYTE COUNT 0.1 K/uL; INSTRUMENT ABS NEUTROPHIL CT 14.4 K/uL; LYMPHOCYTE COUNT 1.1 K/uL (1.0-2.8); MCH 30.3 PG (29.0-34.0); MCV 97.6 FL (86-99); MEAN PLAT.VOLUME 11.7 uM^3 (9.0-12.4); MONOCYTE (%) 2.9 % (3-12); MONOCYTE COUNT 0.5 K/uL (0-0.8); NEUTROPHIL (%) 88.2 % (45-76); NEUTROPHIL COUNT 14.4 K/uL (1.8-6.4); RBC DIS.WIDTH-CV 18.5 % (11.8-14.6); RBC DIS.WIDTH-SD 60.2 % (39-53); RED BLOOD COUNT 2.97 M/uL (4.00-5.50); WHITE BLOOD COUNT 16.3 K/uL (4.1-10.2)
[2016-12-18 06:22] LABS: PLATELET COUNT 68 K/uL (156-360)
[2016-12-18 06:29] LABS: ANION GAP 6 MEQ/L (2-14); CHLORIDE 118 MEQ/L (99-109); GFR ESTIMATE (CALCULATED) > 59 mL/min/; GLUCOSE 171 mg/dL (70-99); MAGNESIUM 2.3 mg/dl (1.3-2.7); POTASSIUM 3.7 MEQ/L (3.7-5.4); SAMPLE HEMOLYSIS CHECK 0; SAMPLE ICTERIC CHECK 0; SAMPLE LIPEMIA CHECK 0; SODIUM 154 MEQ/L (136-147); UREA NITROGEN (BUN) 25 mg/dL (9-23)
[2016-12-18 12:45] LABS: POINT-OF-CARE METER ID UU13113803; POINT-OF-CARE USER ID 612031313
[2016-12-18 18:21] LABS: POINT-OF-CARE METER ID UU13113803; POINT-OF-CARE USER ID 612031313
[2016-12-19] VITALS (22 sets, daily range): BP systolic 0–136; BP diastolic 0–85
[2016-12-19 00:13] LABS: POINT-OF-CARE USER ID LABHNS84
[2016-12-19 05:14] LABS: BASE EXCESS 8.5 mEq/L (-3 to +3); BICARBONATE 31.6 mEq/L (22-26); CARBOXY HGB 2.3 % (0-5); METHEMOGLOBIN 1.7 % (0-1.5)
[2016-12-19 05:15] LABS: DEVICE PB840; FI02 40 %; MECHANICAL RATE 26 resp/min; MODE ACVC; PCO2 37 mm Hg (35-45); PEEP 10 CM/H20; PO2 91 mm Hg (80-100); TIDAL VOLUME 550 ML; TOTAL RESP RATE 26 resp/min; pH 7.54 (7.35-7.45)
[2016-12-19 05:16] LABS: COMMENTS - BLOOD GASES C+; SITE A-LINE
[2016-12-19 05:30] LABS: POINT-OF-CARE USER ID LABHNS84
[2016-12-19 06:20] LABS: BASOPHIL COUNT 0.1 K/uL (0-0.1); EOSINOPHIL (%) 1.6 % (0-5); EOSINOPHIL COUNT 0.2 K/uL (0-0.3); HEMATOCRIT 28.5 % (38.0-50.0); IMMATURE GRANULOCYTE (%) 0.6 % (0.0-0.7); IMMATURE GRANULOCYTE COUNT 0.1 K/uL; INSTRUMENT ABS NEUTROPHIL CT 12.4 K/uL; LYMPHOCYTE COUNT 0.9 K/uL (1.0-2.8); MCH 30.6 PG (29.0-34.0); MCHC 30.9 G/DL (30.0-36.0); MEAN PLAT.VOLUME 11.9 uM^3 (9.0-12.4); MONOCYTE (%) 3.4 % (3-12); MONOCYTE COUNT 0.5 K/uL (0-0.8); NEUTROPHIL (%) 87.6 % (45-76); NEUTROPHIL COUNT 12.4 K/uL (1.8-6.4); PLATELET COUNT 66 K/uL (156-360); RBC DIS.WIDTH-CV 18.7 % (11.8-14.6); RBC DIS.WIDTH-SD 62.5 % (39-53); RED BLOOD COUNT 2.88 M/uL (4.00-5.50); WHITE BLOOD COUNT 14.1 K/uL (4.1-10.2)
[2016-12-19 06:41] LABS: ALKALINE PHOSPHATASE 72 IU/L (3-129); ANION GAP 7 MEQ/L (2-14); CHLORIDE 119 MEQ/L (99-109); GFR ESTIMATE (CALCULATED) > 59 mL/min/; GLUCOSE 190 mg/dL (70-99); MAGNESIUM 2.1 mg/dl (1.3-2.7); POTASSIUM 3.5 MEQ/L (3.7-5.4); SAMPLE HEMOLYSIS CHECK 0; SAMPLE ICTERIC CHECK 0; SAMPLE LIPEMIA CHECK 0; SODIUM 157 MEQ/L (136-147); UREA NITROGEN (BUN) 27 mg/dL (9-23)
[2016-12-19 06:42] LABS: INTER. NORMALIZED RATIO 1.6; PTT 30.1 (25-32)
[2016-12-19 06:47] LABS: TOTAL BILIRUBIN 1.9 MG/DL (0.0-1.0)
[2016-12-19 13:17] LABS: POINT-OF-CARE METER ID UU13113803
[2016-12-19 18:09] LABS: POINT-OF-CARE METER ID UU13113803
[2016-12-19 23:50] LABS: POINT-OF-CARE METER ID UU13113803
[2016-12-20] VITALS: BP 117/71
[2016-12-20 04:00] VITALS: BP 129/85
[2016-12-20 05:13] LABS: POINT-OF-CARE METER ID UU14174217
[2016-12-20 06:31] LABS: EOSINOPHIL (%) 1.6 % (0-5); EOSINOPHIL COUNT 0.2 K/uL (0-0.3); IMMATURE GRANULOCYTE (%) 0.4 % (0.0-0.7); INSTRUMENT ABS NEUTROPHIL CT 8.7 K/uL; MCH 30.3 PG (29.0-34.0); MCHC 30.3 G/DL (30.0-36.0); MEAN PLAT.VOLUME 12.9 uM^3 (9.0-12.4); MONOCYTE (%) 4.4 % (3-12); MONOCYTE COUNT 0.5 K/uL (0-0.8); NEUTROPHIL (%) 83.5 % (45-76); NEUTROPHIL COUNT 8.7 K/uL (1.8-6.4); PLATELET COUNT 67 K/uL (156-360); RBC DIS.WIDTH-CV 18.7 % (11.8-14.6); RBC DIS.WIDTH-SD 64.7 % (39-53); WHITE BLOOD COUNT 10.4 K/uL (4.1-10.2)
[2016-12-20 06:57] LABS: ANION GAP 6 MEQ/L (2-14); CHLORIDE 118 MEQ/L (99-109); GFR ESTIMATE (CALCULATED) > 59 mL/min/; GLUCOSE 228 mg/dL (70-99); MAGNESIUM 2.1 mg/dl (1.3-2.7); POTASSIUM 3.4 MEQ/L (3.7-5.4); SAMPLE HEMOLYSIS CHECK 0; SAMPLE ICTERIC CHECK 0; SAMPLE LIPEMIA CHECK 0; SODIUM 152 MEQ/L (136-147); UREA NITROGEN (BUN) 22 mg/dL (9-23)
[2016-12-20 08:00] VITALS: BP 135/77
[2016-12-20 12:00] VITALS: BP 117/76
[2016-12-20 12:26] LABS: POINT-OF-CARE METER ID UU13113731
[2016-12-20 14:19] LABS: ADD MIUA? YES; BILIRUBIN NEGATIVE; BLOOD SMALL; COLOR AMBER ((YELLOW)); GLUCOSE (STRIP) NEGATIVE; KETONES NEGATIVE; LEUKOCYTES NEGATIVE; NITRITE NEGATIVE; PROTEIN (STRIP) NEGATIVE; SPECIFIC GRAVITY 1.018 (1.000-1.030); UROBILINOGEN 0.2 MG/DL (0.2-1.0)
[2016-12-20 14:34] LABS: BACTERIA RARE /HPF; EPITHELIAL CELLS NONE SEEN /HPF; MUCUS TRACE /LPF; WHITE BLOOD CELLS 0-5 /HPF (0-5)
[2016-12-20 16:00] VITALS: BP 114/62
[2016-12-20 20:00] VITALS: BP 122/86
[2016-12-21] VITALS: BP 120/77
[2016-12-21 00:25] LABS: POINT-OF-CARE METER ID UU14174217
[2016-12-21 04:00] VITALS: BP 105/65
[2016-12-21 04:42] LABS: CHLORIDE 117 mEq/L (99-109); POTASSIUM 3.5 mEq/L (3.7-5.4); SODIUM 149 mEq/L (136-147)
[2016-12-21 04:43] LABS: MAGNESIUM 1.9 mg/dL (1.3-2.7)
[2016-12-21 04:44] LABS: GLUCOSE 216 mg/dL (70-99)
[2016-12-21 04:45] LABS: ANION GAP 7 MEQ/L (2-14)
[2016-12-21 04:48] LABS: GFR ESTIMATE (CALCULATED) > 59 mL/min/
[2016-12-21 04:49] LABS: UREA NITROGEN (BUN) 18 mg/dL (9-23)
[2016-12-21 05:48] LABS: POINT-OF-CARE METER ID UU13113803
[2016-12-21 08:00] VITALS: BP 117/72
[2016-12-21 12:00] VITALS: BP 116/74
[2016-12-21 14:13] LABS: HEMATOCRIT 27.3 % (38.0-50.0); MCH 30.5 PG (29.0-34.0); MCHC 30.8 G/DL (30.0-36.0); MCV 99.3 FL (86-99); PLATELET COUNT 74 K/uL (156-360); RBC DIS.WIDTH-CV 18.6 % (11.8-14.6); RBC DIS.WIDTH-SD 65.3 % (39-53); RED BLOOD COUNT 2.75 M/uL (4.00-5.50)
[2016-12-21 16:00] VITALS: BP 159/83
[2016-12-21 18:01] LABS: POINT-OF-CARE METER ID UU13113803
[2016-12-21 20:00] VITALS: BP 105/67
[2016-12-22] VITALS: BP 124/73
[2016-12-22 00:27] LABS: POINT-OF-CARE METER ID UU13113803; POINT-OF-CARE USER ID PHATLC
[2016-12-22 04:00] VITALS: BP 115/72
[2016-12-22 04:49] LABS: HEMATOCRIT 28.3 % (38.0-50.0); MCH 30.3 PG (29.0-34.0); MCHC 31.1 G/DL (30.0-36.0); MCV 97.6 FL (86-99); MEAN PLAT.VOLUME 12.3 uM^3 (9.0-12.4); PLATELET COUNT 71 K/uL (156-360); RBC DIS.WIDTH-CV 18.6 % (11.8-14.6); WHITE BLOOD COUNT 8.7 K/uL (4.1-10.2)
[2016-12-22 05:03] LABS: CHLORIDE 120 mEq/L (99-109); POTASSIUM 3.5 mEq/L (3.7-5.4); SODIUM 151 mEq/L (136-147)
[2016-12-22 05:04] LABS: MAGNESIUM 1.9 mg/dL (1.3-2.7)
[2016-12-22 05:05] LABS: GLUCOSE 179 mg/dL (70-99)
[2016-12-22 05:06] LABS: ANION GAP 6 MEQ/L (2-14)
[2016-12-22 05:09] LABS: GFR ESTIMATE (CALCULATED) > 59 mL/min/
[2016-12-22 05:10] LABS: UREA NITROGEN (BUN) 18 mg/dL (9-23)
[2016-12-22 06:33] LABS: POINT-OF-CARE USER ID PHATLC
[2016-12-22 08:00] VITALS: BP 128/78
[2016-12-22 12:00] VITALS: BP 120/71
[2016-12-22 16:00] VITALS: BP 113/67
[2016-12-22 20:00] VITALS: BP 120/75
[2016-12-23] VITALS: BP 138/76
[2016-12-23 01:40] LABS: POINT-OF-CARE USER ID PHATLC
[2016-12-23 04:00] VITALS: BP 137/76
[2016-12-23 05:48] LABS: HEMATOCRIT 26.5 % (38.0-50.0); MCH 31.2 PG (29.0-34.0); MCHC 31.3 G/DL (30.0-36.0); MCV 99.6 FL (86-99); MEAN PLAT.VOLUME 13.1 uM^3 (9.0-12.4); PLATELET COUNT 79 K/uL (156-360); RBC DIS.WIDTH-CV 18.6 % (11.8-14.6); RBC DIS.WIDTH-SD 66.4 % (39-53); RED BLOOD COUNT 2.66 M/uL (4.00-5.50); WHITE BLOOD COUNT 7.9 K/uL (4.1-10.2)
[2016-12-23 05:52] LABS: POINT-OF-CARE USER ID PHATLC
[2016-12-23 06:35] LABS: ANION GAP 5 MEQ/L (2-14); CHLORIDE 115 MEQ/L (99-109); GFR ESTIMATE (CALCULATED) > 59 mL/min/; GLUCOSE 194 mg/dL (70-99); MAGNESIUM 2.4 mg/dl (1.3-2.7); SAMPLE HEMOLYSIS CHECK 0; SAMPLE ICTERIC CHECK 0; SAMPLE LIPEMIA CHECK 0; SODIUM 147 MEQ/L (136-147); UREA NITROGEN (BUN) 20 mg/dL (9-23)
[2016-12-23 08:00] VITALS: BP 133/74
[2016-12-23 12:00] VITALS: BP 116/76
[2016-12-23 16:00] VITALS: BP 137/79
[2016-12-23 18:20] LABS: POINT-OF-CARE METER ID UU13113803
[2016-12-23 20:00] VITALS: BP 122/80
[2016-12-24] VITALS (8 sets, daily range): BP systolic 115–140; BP diastolic 70–88
[2016-12-24 00:35] LABS: POINT-OF-CARE USER ID LABHNS84
[2016-12-24 05:31] LABS: POINT-OF-CARE METER ID UU13113803; POINT-OF-CARE USER ID ENVSME70
[2016-12-24 06:47] LABS: HEMATOCRIT 26.2 % (38.0-50.0); MCH 31.5 PG (29.0-34.0); MCHC 31.3 G/DL (30.0-36.0); MCV 100.8 FL (86-99); MEAN PLAT.VOLUME 13.2 uM^3 (9.0-12.4); PLATELET COUNT 68 K/uL (156-360); RBC DIS.WIDTH-CV 18.1 % (11.8-14.6); RBC DIS.WIDTH-SD 65.8 % (39-53); WHITE BLOOD COUNT 6.8 K/uL (4.1-10.2)
[2016-12-24 07:13] LABS: ANION GAP 6 MEQ/L (2-14); CHLORIDE 117 MEQ/L (99-109); GFR ESTIMATE (CALCULATED) > 59 mL/min/; GLUCOSE 127 mg/dL (70-99); MAGNESIUM 2.3 mg/dl (1.3-2.7); POTASSIUM 3.9 MEQ/L (3.7-5.4); SAMPLE HEMOLYSIS CHECK 0; SAMPLE ICTERIC CHECK 0; SAMPLE LIPEMIA CHECK 0; SODIUM 148 MEQ/L (136-147); UREA NITROGEN (BUN) 21 mg/dL (9-23)
[2016-12-24 12:40] LABS: POINT-OF-CARE METER ID UU14174217
[2016-12-24 15:04] LABS: C DIFF TOXIN ND (NEGATIVE)
[2016-12-24 18:37] LABS: POINT-OF-CARE METER ID UU14174217
[2016-12-25] VITALS (23 sets, daily range): BP systolic 101–138; BP diastolic 65–86
[2016-12-25 00:30] LABS: POINT-OF-CARE METER ID UU13113803
[2016-12-25 05:30] LABS: CHLORIDE 117 mEq/L (99-109); SODIUM 148 mEq/L (136-147)
[2016-12-25 05:31] LABS: MAGNESIUM 2.1 mg/dL (1.3-2.7)
[2016-12-25 05:32] LABS: EOSINOPHIL (%) 6.6 % (0-5); EOSINOPHIL COUNT 0.5 K/uL (0-0.3); GLUCOSE 184 mg/dL (70-99); HEMATOCRIT 27.7 % (38.0-50.0); IMMATURE GRANULOCYTE (%) 0.4 % (0.0-0.7); INSTRUMENT ABS NEUTROPHIL CT 5.2 K/uL; LYMPHOCYTE COUNT 1.1 K/uL (1.0-2.8); MCH 30.1 PG (29.0-34.0); MCHC 30.3 G/DL (30.0-36.0); MCV 99.3 FL (86-99); MEAN PLAT.VOLUME 13.5 uM^3 (9.0-12.4); MONOCYTE (%) 9.3 % (3-12); MONOCYTE COUNT 0.7 K/uL (0-0.8); NEUTROPHIL (%) 69.3 % (45-76); NEUTROPHIL COUNT 5.2 K/uL (1.8-6.4); PLATELET COUNT 72 K/uL (156-360); RBC DIS.WIDTH-CV 17.7 % (11.8-14.6); RBC DIS.WIDTH-SD 64.4 % (39-53); RED BLOOD COUNT 2.79 M/uL (4.00-5.50); WHITE BLOOD COUNT 7.5 K/uL (4.1-10.2)
[2016-12-25 05:32] LABS: POINT-OF-CARE USER ID LABHNS84
[2016-12-25 05:33] LABS: ANION GAP 5 MEQ/L (2-14)
[2016-12-25 05:36] LABS: GFR ESTIMATE (CALCULATED) > 59 mL/min/; UREA NITROGEN (BUN) 23 mg/dL (9-23)
[2016-12-25 12:24] LABS: POINT-OF-CARE METER ID UU14162636
[2016-12-25 17:31] LABS: INTERNAL CONTROL VALID? YES
[2016-12-25 18:17] LABS: POINT-OF-CARE METER ID UU13113731
[2016-12-26] VITALS (20 sets, daily range): BP systolic 101–133; BP diastolic 64–84
[2016-12-26 05:08] LABS: POINT-OF-CARE METER ID UU14162636; POINT-OF-CARE USER ID LABHNS84
[2016-12-26 05:27] LABS: EOSINOPHIL (%) 7.7 % (0-5); EOSINOPHIL COUNT 0.5 K/uL (0-0.3); HEMATOCRIT 28.8 % (38.0-50.0); IMMATURE GRANULOCYTE (%) 0.3 % (0.0-0.7); INSTRUMENT ABS NEUTROPHIL CT 4.5 K/uL; LYMPHOCYTE COUNT 1.1 K/uL (1.0-2.8); MCH 30.1 PG (29.0-34.0); MCHC 30.6 G/DL (30.0-36.0); MCV 98.6 FL (86-99); MEAN PLAT.VOLUME 12.9 uM^3 (9.0-12.4); MONOCYTE (%) 10.4 % (3-12); MONOCYTE COUNT 0.7 K/uL (0-0.8); NEUTROPHIL (%) 65.9 % (45-76); NEUTROPHIL COUNT 4.5 K/uL (1.8-6.4); PLATELET COUNT 63 K/uL (156-360); RBC DIS.WIDTH-CV 17.4 % (11.8-14.6); RBC DIS.WIDTH-SD 63.2 % (39-53); RED BLOOD COUNT 2.92 M/uL (4.00-5.50); WHITE BLOOD COUNT 6.9 K/uL (4.1-10.2)
[2016-12-26 05:53] LABS: ANION GAP 6 MEQ/L (2-14); CHLORIDE 115 MEQ/L (99-109); GFR ESTIMATE (CALCULATED) > 59 mL/min/; GLUCOSE 166 mg/dL (70-99); MAGNESIUM 2.2 mg/dl (1.3-2.7); POTASSIUM 3.7 MEQ/L (3.7-5.4); SAMPLE HEMOLYSIS CHECK 0; SAMPLE ICTERIC CHECK 0; SAMPLE LIPEMIA CHECK 0; SODIUM 148 MEQ/L (136-147); UREA NITROGEN (BUN) 22 mg/dL (9-23)
[2016-12-26 12:20] LABS: POINT-OF-CARE METER ID UU13113731
[2016-12-26 13:09] LABS: ADD MIUA? YES; BILIRUBIN NEGATIVE; BLOOD LARGE; COLOR AMBER ((YELLOW)); GLUCOSE (STRIP) NEGATIVE; KETONES NEGATIVE; LEUKOCYTES NEGATIVE; NITRITE NEGATIVE; PROTEIN (STRIP) NEGATIVE; SPECIFIC GRAVITY 1.016 (1.000-1.030); UROBILINOGEN 0.2 MG/DL (0.2-1.0)
[2016-12-26 14:04] LABS: RED BLOOD CELLS TNTC /HPF (0-5)
[2016-12-26 14:06] LABS: ALKALINE PHOSPHATASE 84 IU/L (3-129); DIRECT BILIRUBIN 0.5 mg/dL (0.0-0.3)
[2016-12-26 14:07] LABS: TOTAL BILIRUBIN 1.1 MG/DL (0.0-1.0)
[2016-12-26 14:07] LABS: BACTERIA NONE SEEN /HPF; EPITHELIAL CELLS NONE SEEN /HPF; MUCUS NONE SEEN /LPF; UCUL ADDED? NO; WHITE BLOOD CELLS NONE SEEN /HPF (0-5)
[2016-12-26 14:48] LABS: POINT-OF-CARE METER ID UU13113731; POINT-OF-CARE USER ID LABHNS84
[2016-12-26 17:16] LABS: POINT-OF-CARE METER ID UU13113731
[2016-12-26 19:26] LABS: BASE EXCESS 6.1 mEq/L (-3 to +3); BICARBONATE 29.5 mEq/L (22-26); CARBOXY HGB 2.3 % (0-5); METHEMOGLOBIN 1.7 % (0-1.5); PCO2 37 mm Hg (35-45); PO2 78 mm Hg (80-100); pH 7.51 (7.35-7.45)
[2016-12-26 19:27] LABS: COMMENTS - BLOOD GASES C+A+; DEVICE 980 VENT; FI02 35 %; MODE SPONT; PEEP 5 CM/H20; PRES. SUPPORT 10 CM/H2O; SITE RR; TOTAL RESP RATE 24 resp/min
[2016-12-27] VITALS (13 sets, daily range): BP systolic 101–130; BP diastolic 61–82
[2016-12-27 01:17] LABS: POINT-OF-CARE METER ID UU13113803; POINT-OF-CARE USER ID PHATLC
[2016-12-27 05:43] LABS: POINT-OF-CARE METER ID UU14174217; POINT-OF-CARE USER ID PHATLC
[2016-12-27 06:16] LABS: EOSINOPHIL (%) 7.6 % (0-5); EOSINOPHIL COUNT 0.6 K/uL (0-0.3); HEMATOCRIT 28.2 % (38.0-50.0); IMMATURE GRANULOCYTE (%) 0.3 % (0.0-0.7); INSTRUMENT ABS NEUTROPHIL CT 5.3 K/uL; LYMPHOCYTE COUNT 1.2 K/uL (1.0-2.8); MCH 31.2 PG (29.0-34.0); MCHC 31.6 G/DL (30.0-36.0); MCV 98.9 FL (86-99); MONOCYTE (%) 9.3 % (3-12); MONOCYTE COUNT 0.7 K/uL (0-0.8); NEUTROPHIL (%) 67.5 % (45-76); NEUTROPHIL COUNT 5.3 K/uL (1.8-6.4); PLATELET COUNT 65 K/uL (156-360); RBC DIS.WIDTH-CV 17.2 % (11.8-14.6); RBC DIS.WIDTH-SD 62.2 % (39-53); RED BLOOD COUNT 2.85 M/uL (4.00-5.50); WHITE BLOOD COUNT 7.9 K/uL (4.1-10.2)
[2016-12-27 06:47] LABS: ANION GAP 8 MEQ/L (2-14); CHLORIDE 113 MEQ/L (99-109); GFR ESTIMATE (CALCULATED) > 59 mL/min/; GLUCOSE 201 mg/dL (70-99); MAGNESIUM 2.1 mg/dl (1.3-2.7); POTASSIUM 3.7 MEQ/L (3.7-5.4); SAMPLE HEMOLYSIS CHECK 0; SAMPLE ICTERIC CHECK 0; SAMPLE LIPEMIA CHECK 0; SODIUM 147 MEQ/L (136-147); UREA NITROGEN (BUN) 21 mg/dL (9-23)
[2016-12-27 12:32] LABS: POINT-OF-CARE METER ID UU14174217
[2016-12-27 17:51] LABS: POINT-OF-CARE METER ID UU14174217
[2016-12-27 18:48] LABS: ADD MIUA? YES; BILIRUBIN NEGATIVE; BLOOD SMALL; COLOR YELLOW ((YELLOW)); GLUCOSE (STRIP) NEGATIVE; KETONES NEGATIVE; LEUKOCYTES NEGATIVE; NITRITE NEGATIVE; PROTEIN (STRIP) NEGATIVE; SPECIFIC GRAVITY 1.016 (1.000-1.030); UROBILINOGEN 0.2 MG/DL (0.2-1.0)
[2016-12-27 19:11] LABS: BACTERIA NONE SEEN /HPF; EPITHELIAL CELLS RARE /HPF; MUCUS NONE SEEN /LPF; UCUL ADDED? NO; WHITE BLOOD CELLS 0-5 /HPF (0-5)
[2016-12-28] VITALS (12 sets, daily range): BP systolic 111–123; BP diastolic 69–84
[2016-12-28 02:24] LABS: POINT-OF-CARE METER ID UU13113731; POINT-OF-CARE USER ID ENVSME70
[2016-12-28 05:22] LABS: POINT-OF-CARE METER ID UU13113731; POINT-OF-CARE USER ID PHATLC
[2016-12-28 05:58] LABS: POINT-OF-CARE METER ID UU13113731; POINT-OF-CARE USER ID PHATLC
[2016-12-28 07:20] LABS: EOSINOPHIL COUNT 0.6 K/uL (0-0.3); HEMATOCRIT 27.4 % (38.0-50.0); IMMATURE GRANULOCYTE (%) 0.3 % (0.0-0.7); INSTRUMENT ABS NEUTROPHIL CT 5.2 K/uL; LYMPHOCYTE COUNT 1.1 K/uL (1.0-2.8); MCH 31.5 PG (29.0-34.0); MCHC 31.8 G/DL (30.0-36.0); MCV 99.3 FL (86-99); MEAN PLAT.VOLUME 13.7 uM^3 (9.0-12.4); MONOCYTE (%) 10.1 % (3-12); MONOCYTE COUNT 0.8 K/uL (0-0.8); NEUTROPHIL (%) 67.5 % (45-76); NEUTROPHIL COUNT 5.2 K/uL (1.8-6.4); NRBC (%) 0.3 /100 WBC (0-0); PLATELET COUNT 64 K/uL (156-360); RBC DIS.WIDTH-CV 17.4 % (11.8-14.6); RBC DIS.WIDTH-SD 63.1 % (39-53); RED BLOOD COUNT 2.76 M/uL (4.00-5.50); WHITE BLOOD COUNT 7.6 K/uL (4.1-10.2)
[2016-12-28 07:41] LABS: ANION GAP 7 MEQ/L (2-14); CHLORIDE 113 MEQ/L (99-109); GFR ESTIMATE (CALCULATED) > 59 mL/min/; GLUCOSE 161 mg/dL (70-99); MAGNESIUM 2.1 mg/dl (1.3-2.7); POTASSIUM 3.6 MEQ/L (3.7-5.4); SAMPLE HEMOLYSIS CHECK 0; SAMPLE ICTERIC CHECK 0; SAMPLE LIPEMIA CHECK 0; SODIUM 145 MEQ/L (136-147); UREA NITROGEN (BUN) 20 mg/dL (9-23)
[2016-12-28 17:28] LABS: POINT-OF-CARE METER ID UU14162636
[2016-12-29] VITALS (7 sets, daily range): BP systolic 107–128; BP diastolic 68–79
[2016-12-29 01:19] LABS: POINT-OF-CARE USER ID PHATLC
[2016-12-29 06:04] LABS: EOSINOPHIL (%) 6.1 % (0-5); EOSINOPHIL COUNT 0.5 K/uL (0-0.3); HEMATOCRIT 29.6 % (38.0-50.0); IMMATURE GRANULOCYTE (%) 0.2 % (0.0-0.7); INSTRUMENT ABS NEUTROPHIL CT 5.8 K/uL; LYMPHOCYTE COUNT 1.2 K/uL (1.0-2.8); MCH 30.6 PG (29.0-34.0); MCHC 31.1 G/DL (30.0-36.0); MCV 98.3 FL (86-99); MEAN PLAT.VOLUME 13.6 uM^3 (9.0-12.4); MONOCYTE (%) 9.6 % (3-12); MONOCYTE COUNT 0.8 K/uL (0-0.8); NEUTROPHIL (%) 69.5 % (45-76); NEUTROPHIL COUNT 5.8 K/uL (1.8-6.4); PLATELET COUNT 62 K/uL (156-360); RBC DIS.WIDTH-CV 17.2 % (11.8-14.6); RBC DIS.WIDTH-SD 61.9 % (39-53); RED BLOOD COUNT 3.01 M/uL (4.00-5.50); WHITE BLOOD COUNT 8.3 K/uL (4.1-10.2)
[2016-12-29 06:36] LABS: ANION GAP 6 MEQ/L (2-14); CHLORIDE 111 MEQ/L (99-109); GFR ESTIMATE (CALCULATED) > 59 mL/min/; GLUCOSE 179 mg/dL (70-99); SAMPLE HEMOLYSIS CHECK 0; SAMPLE ICTERIC CHECK 0; SAMPLE LIPEMIA CHECK 0; SODIUM 143 MEQ/L (136-147); UREA NITROGEN (BUN) 22 mg/dL (9-23)
[2016-12-29 11:34] LABS: POINT-OF-CARE METER ID UU13113731
[2016-12-29 16:18] LABS: POINT-OF-CARE METER ID UU13113731
[2016-12-30] VITALS (8 sets, daily range): BP systolic 0–130; BP diastolic 0–82
[2016-12-30 06:31] LABS: EOSINOPHIL (%) 7.7 % (0-5); EOSINOPHIL COUNT 0.9 K/uL (0-0.3); HEMATOCRIT 28.9 % (38.0-50.0); IMMATURE GRANULOCYTE (%) 0.4 % (0.0-0.7); IMMATURE GRANULOCYTE COUNT 0.1 K/uL; INSTRUMENT ABS NEUTROPHIL CT 9.5 K/uL; LYMPHOCYTE COUNT 0.5 K/uL (1.0-2.8); MCH 30.3 PG (29.0-34.0); MCHC 30.8 G/DL (30.0-36.0); MCV 98.3 FL (86-99); MEAN PLAT.VOLUME 13.3 uM^3 (9.0-12.4); MONOCYTE (%) 4.9 % (3-12); MONOCYTE COUNT 0.6 K/uL (0-0.8); NEUTROPHIL (%) 82.1 % (45-76); NEUTROPHIL COUNT 9.5 K/uL (1.8-6.4); PLATELET COUNT 68 K/uL (156-360); RBC DIS.WIDTH-CV 16.8 % (11.8-14.6); RBC DIS.WIDTH-SD 60.1 % (39-53); RED BLOOD COUNT 2.94 M/uL (4.00-5.50)
[2016-12-30 06:32] LABS: WHITE BLOOD COUNT 11.6 K/uL (4.1-10.2)
[2016-12-30 06:48] LABS: ANION GAP 6 MEQ/L (2-14); CHLORIDE 109 MEQ/L (99-109); GFR ESTIMATE (CALCULATED) > 59 mL/min/; GLUCOSE 196 mg/dL (70-99); POTASSIUM 3.9 MEQ/L (3.7-5.4); SAMPLE HEMOLYSIS CHECK 0; SAMPLE ICTERIC CHECK 0; SAMPLE LIPEMIA CHECK 0; SODIUM 139 MEQ/L (136-147); UREA NITROGEN (BUN) 23 mg/dL (9-23)
[2016-12-30 12:08] LABS: POINT-OF-CARE METER ID UU13113731
[2016-12-30 16:28] LABS: POINT-OF-CARE METER ID UU13113731
[2016-12-31] VITALS: BP 100/55
[2016-12-31 04:00] VITALS: BP 90/58
== END 2016-12-31 08:49 | DRG 4 ==
LOC: EME 20:49 → RME 20:49 → 4WEST 23:55 → EDOF 23:55 → 4WEST 12-08 01:50
PROVIDERS: Anesthesiology; Emergency Medicine; Family Medicine Sports Medicine; Internal Medicine Critical Care Medicine; Internal Medicine Nephrology; Internal Medicine Pulmonary Disease; Obstetrics & Gynecology; Surgery Surgical Critical Care
DX: A41.9 Sepsis, unspecified organism (principal); R65.21 Severe sepsis with septic shock; I60.9 Nontraumatic subarachnoid hemorrhage, unspecified; R13.10 Dysphagia, unspecified; J96.01 Acute respiratory failure with hypoxia; Z51.5 Encounter for palliative care; E87.2 Acidosis; J18.9 Pneumonia, unspecified organism; D69.6 Thrombocytopenia, unspecified; Z66 Do not resuscitate; D68.9 Coagulation defect, unspecified; F10.239 Alcohol dependence with withdrawal, unspecified; Z56.0 Unemployment, unspecified; F17.200 Nicotine dependence, unspecified, uncomplicated; E87.1 Hypo-osmolality and hyponatremia; E87.6 Hypokalemia; Z91.19 Patient's noncompliance with other medical treatment and regimen; B18.2 Chronic viral hepatitis C; I10 Essential (primary) hypertension; S71.012A Laceration without foreign body, left hip, initial encounter; X58.XXXA Exposure to other specified factors, initial encounter; R73.9 Hyperglycemia, unspecified; N17.0 Acute kidney failure with tubular necrosis; E87.0 Hyperosmolality and hypernatremia; K74.60 Unspecified cirrhosis of liver
CPT/HCPCS: 36600; 70450; 70553; 71010; 71020; 71275; 74000; 74177; 76705; 80048; 80048 91; 80053; 80076; 80202; 81003; 82140; 82330; 82570; 82803; 82948; 83036; 83605; 83630; 83690; 83735; 83880; 84100; 84300; 84484; 84550; 85025; 85027; 85384; 85610; 85730; 86022 90; 86900; 86901; 87040; 87070; 87077; 87086; 87106; 87181; 87205; 87493; 87502; 87641; 87801; 93005; 93970; 94002; 94003; 94640; 94640 76; 94667; 94668; 94760; 94799; 95819; 99281; 99285; C9113; G0480; J0330; J0360; J0696; J1170; J1644; J1815; J1940; J1953; J1956; J2060; J2250; J2270; J2370; J2543; J2704; J2765; J3010; J3370; J3411; J3475; J3480; J7030; J7040; J7050; J7070; J7120; P9017; P9035; P9047; S0028